=== PATIENT | male | born 1935 | race Caucasian/White ===

== ENCOUNTER 2021-09-25 22:44 | Emergency (ER) | payer MEDICARE, OTHER ==
[2021-09-25] MEDS ORDERED: Bacitracin Oint 1 GM U/D Packet TOP ONE (23:45)
[2021-09-26] MEDS ORDERED: Diphtheria,Pertussis(Acell),Tetanus Vaccine 0.5 ML Syringe IM ONE (00:36)
== END 2021-09-26 01:14 | disposition home or self-care (01) ==
LOC: JP.ED 22:44
DX: S02.2XXB Fracture of nasal bones, initial encounter for open fracture (principal); R04.0 Epistaxis; E78.00 Pure hypercholesterolemia, unspecified; I25.2 Old myocardial infarction; K21.9 Gastro-esophageal reflux disease without esophagitis; J45.909 Unspecified asthma, uncomplicated; Z95.5 Presence of coronary angioplasty implant and graft; Z79.82 Long term (current) use of aspirin; Z79.02 Long term (current) use of antithrombotics/antiplatelets; Z79.01 Long term (current) use of anticoagulants; Z79.899 Other long term (current) drug therapy; Z91.013 Allergy to seafood; Z23 Encounter for immunization; W01.0XXA Fall on same level from slipping, tripping and stumbling without subsequent striking against object, initial encounter
CPT/HCPCS: 12011; 36415; 70450; 70486; 85014; 85018; 90471; 90715; 99283; 99284-25